=== PATIENT | female | born 1930 | race Caucasian/White ===

== ENCOUNTER 2017-04-20 21:41 | Inpatient (IN) | payer MEDICARE, OTHER ==
[~2017-04-20] VITALS: Ht 157.5 cm; Wt 45.4 kg
[~2017-04-20 21:41] MED LIST: AMLO5TAB4 PO; FLEC50TA2 PO; LEVO75TA PO; METO-302 PO; [UNRECOGNIZED DRUG - CODE] PO
--- NOTE | 2017-04-20 21:44 | NUR ---
PT BIB [facility] WITH A C/O LAC ON BACK OF HEAD AND SKIN TEAR ON THE RT HAND S/P FALL. ETOH NOTED. PT IS ON THE MONITOR AND CONTINUOUS PULSE OX. PT IS VERBALLY ABUSIVE TO THE STAFF AND YELLING "FUCK YOU" TO EVERYONE. WHEN TRYING TO HELP THE PT SHE YELLS: " SHUT UP"
[2017-04-20] MEDS ORDERED: OLANZAPINE 10 MG VIAL IM ONE ×2 (21:45→22:00)
--- NOTE | 2017-04-20 21:50 | NUR ---
PT SUMANTH'Brittany DOW.
--- NOTE | 2017-04-20 22:13 | NUR ---
PT COMBATIVE, ER WILL CALL WHEN READY FOR CT SCANS.
--- NOTE | 2017-04-20 22:20 | NUR ---
PT IS IN CT.
--- NOTE | 2017-04-20 22:50 | NUR ---
PT RETURNED FROM CT.
--- NOTE | 2017-04-20 22:52 | NUR ---
PT REC'D VIRGIL TO LAC ON BACK OF HEAD.
--- NOTE | 2017-04-20 22:53 | NUR ---
PT CALLED THE NURSE. I WENT INTO THE ROOM. PT ASKED: "WHY DOES MY HEAD HURT?" I TOLD THE PT THAT SHE FELL AND CUT HER HEAD. PT YELLED: "I KNOW, I KNOW I FELL, BUT WHY DOES MY HEAD HURT?" PT WAS TOLD THAT SHE CUT HER HEAD WHEN SHE FELL. PT YELLED: "SHUT UP YOU FAT PIG". "GET OUT"
--- NOTE | 2017-04-20 23:06 | NUR ---
PT CALLED. PT WANTS TO KNOW HER BP. PT WAS TOLD. PT YELLED:"GET THE HELL OUT OF HERE".
[2017-04-20 23:41] LABS: BASOPHILS % (AUTO) 0.7 % (0.0-2.0); EOSINOPHILS # (AUTO) 0.1 /CMM (0.0-0.7); EOSINOPHILS % (AUTO) 2.6 % (0.0-6.0); HEMATOCRIT 37 % (33-45); HEMOGLOBIN 12.3 g/dL (11.5-14.8); LYMPHOCYTES # (AUTO) 1.9 /CMM (0.8-4.8); LYMPHOCYTES % (AUTO) 37.6 % (20.0-44.0); MEAN CORPUSCULAR HEMOGLOBIN 30 PG (26.0-33.0); MEAN CORPUSCULAR HGB CONC 33 g/dl (31.0-36.0); MEAN CORPUSCULAR VOLUME 91 fL (82-100); MONOCYTES # (AUTO) 0.4 /CMM (0.1-1.30); NEUTROPHILS # (AUTO) 2.5 /CMM (1.8-8.9); NEUTROPHILS % (AUTO) 50.1 % (43.0-81.0); PLATELET COUNT (AUTO) 254 /CMM (150-450); RDW COEFFICIENT OF VARIATION 14.2 (11.5-15.0); RED BLOOD CELL COUNT(AUTO) 4.06 MIL/uL (4.0-5.2); WHITE BLOOD COUNT (AUTO) 4.9 K/uL (4.3-11.0)
[2017-04-20 23:54] LABS: CALCIUM, SERUM 9.3 mg/dL (8.5-10.1); CARBON DIOXIDE 22 mmol/L (21-32); CHLORIDE 105 mmol/L (98-107); CREATININE 1.6 mg/dL (0.6-1.3); GLUCOSE 94 mg/dL (74-106); POTASSIUM 4.4 mmol/L (3.5-5.1); SODIUM SERUM 138 mmol/L (136-145); UREA NITROGEN, BLOOD 25 mg/dL (7-18)
[2017-04-20 23:58] LABS: ALANINE AMINOTRANSFERASE 12 U/L (12-78); ALBUMIN 3.7 g/dL (3.4-5.0); ALCOHOL, BLOOD 118 mg/dL (0-0); ALKALINE PHOSPHATASE 81 U/L (46-116); ASPARTATE AMINOTRANSFERASE 17 U/L (15-37); BILIRUBIN,DIRECT 0.1 mg/dL (0.0-0.2); BILIRUBIN,TOTAL 0.2 mg/dL (0.2-1.0); TOTAL PROTEIN, SERUM 7.4 g/dL (6.4-8.2)
[2017-04-21] LABS: ACETAMINOPHEN 0 ug/ml (10-30); SALICYLATE 0.9 mg/dL (2.8-20.0)
[2017-04-21] MEDS ORDERED: LORAZEPAM INJ 2 MG/ML VIAL IM ONE
[2017-04-21] MEDS ORDERED: LORAZEPAM INJ 2 MG/ML VIAL ONE (00:09)
--- NOTE | 2017-04-21 00:12 | NUR ---
PT IS SCREAMING AT STAFF. STAFF GOES INTO THE ROOM AND THE PT YELLS: "GET THE FUCK OUT".
--- NOTE | 2017-04-21 01:25 | NUR ---
PT STATED THAT SHE HAD TO USE THE BATHROOM. PT WAS PLACED ON A BEDPAN. APPROX 350 ML YELLOW URINE OUTPUT NOTED. PT HAD ALSO WET THE BED. PT WAS CLEANED UP AND NEW LINENS APPLIED. PT IS ON THE MONITOR AND CONTINUOUS PULSE OX.
[2017-04-21] MEDS ORDERED: hydrALAZINE HCL IV 20 MG VIAL IV ONE (01:30)
[2017-04-21] MEDS ORDERED: hydrALAZINE HCL IV 20 MG VIAL ONE (01:36)
--- NOTE | 2017-04-21 02:00 | NUR ---
PT STATED THAT SHE HAD TO GO TO THE BATHROOM. PT WAS PLACED ON BEDPAN. PT STATED THAT SHE WET THE BED. PT WAS CLEANED AND BED LINENS WERE CHANGED. PT IS ON THE MONITOR AND CONTINUOUS PULSE OX.
--- NOTE | 2017-04-21 02:08 | NUR ---
CXR IN PROGRESS AT THE BEDSIDE.
[2017-04-21] MEDS ORDERED: hydrALAZINE HCL 10 MG TABLET PO PRN (02:30)
[2017-04-21] MEDS ORDERED: ACETAMINOPHEN 325 MG TABLET PO PRN (02:30)
[2017-04-21] MEDS ORDERED: ONDANSETRON HCL/PF 4 MG/2 ML VIAL IVP PRN (02:30)
[2017-04-21] MEDS ORDERED: Z GUARD REMEDY 2 OZ OINT TP PRN (02:30)
[2017-04-21] MEDS ORDERED: LORAZEPAM INJ 2 MG/ML VIAL IV PRN (02:30)
[2017-04-21] MEDS ORDERED: ZOLPIDEM TARTRATE 5 MG TABLET PO PRN (02:30)
--- NOTE | 2017-04-21 03:35 | NUR ---
PT IS AWAKE AND MUMBLING. PT IS ON THE MONITOR AND CONTINUOUS PULSE OX. WILL CONTINUE TO MONITOR THE PT.
--- NOTE | 2017-04-21 05:25 | NUR ---
PT WOKE UP AND WANTED TO USE THE BATHROOM. PT WAS GIVEN A BED PURVIS AND HAD APPROX 300 ML PALE URINE OUTPUT. PT WAS CLEANED AND COVERED WITH WARM BLANKETS.
--- NOTE | 2017-04-21 05:53 | NUR ---
NOZZLE OPERATOR IS AT THE BEDSIDE FOR BLOOD DRAW. PT IS REFUSING BLOOD DRAW.
[2017-04-21] MEDS: IV 1/2NS 1000 ML 1,000 ML IV PRN ×2 (06:30→11:29)
--- NOTE | 2017-04-21 06:30 | NUR ---
STARTED PT'S MAINTAINANCE DRIP OF 0.45 NS VIA 22G IV RT HAND.
--- NOTE | 2017-04-21 07:06 | NUR ---
REPORT GIVEN TO SANDRA MENDZE FOR BRANT.
--- NOTE | 2017-04-21 07:12 | NUR ---
PATIENT ON BED.,AWAKE, VSS
[2017-04-21] MEDS ORDERED: METOPROLOL SUCCINATE 25 MG TAB.SR.24H PO SCH (09:00)
--- NOTE | 2017-04-21 09:35 | NUR ---
PT TRANSFERRED TO TRANSITION AREA, VSS
--- NOTE | 2017-04-21 10:00 | NUR ---
PT AGITATED, RUDE, UNCOOPERATIVE. HIGH BP, REFUSING ALL MEDS.
--- NOTE | 2017-04-21 10:08 | NUR ---
WOUND CARE CONSULT: ATTEMPTED TO SEE PT IN TRANSITION AREA BUT PT AGITATED AND REFUSED SKIN ASSESSMENT. PT NOTED TO HAVE VIRGIL TO POSTERIOR SCALP. WILL SEE PRN.
[2017-04-21] MEDS: FLECAINIDE ACETATE (100 MG) 100 MG TABLET PO SCH ×2 (11:20→17:07)
[2017-04-21 11:40] VITALS: BP 189/92
[2017-04-21] MEDS: PANTOPRAZOLE 40 MG TABLET.DR PO SCH (12:17)
[2017-04-21] MEDS: FOLIC ACID 1 MG TABLET PO SCH (12:18)
[2017-04-21] MEDS: MULTIVITAMINS,THERAGRAN 1 UDTAB TABLET PO SCH (12:18)
[2017-04-21] MEDS: AMLODIPINE BESYLATE 5 MG TABLET PO SCH ×3 (12:19→17:12)
[2017-04-21] MEDS: LEVOTHYROXINE SODIUM 75 MCG TABLET PO SCH (12:19)
[2017-04-21] MEDS: THIAMINE HCL 100 MG TABLET PO SCH (12:19)
--- NOTE | 2017-04-21 17:00 | NUR ---
TAMBOCOR ADMINISTERED. REFUSING DINNER, ASSISTED WITH HYGIENE ONE SOFT BM.
[2017-04-21] MEDS: hydrALAZINE HCL 25 MG TABLET PO PRN ×2 (17:10→22:57)
--- NOTE | 2017-04-21 22:56 | NUR ---
BP ELEVATED - 177/77. PT MEDICATED WITH PRN APRESOLINE
[2017-04-21 22:58] VITALS: BP 177/77
--- NOTE | 2017-04-21 23:57 | NUR ---
BP BETTER FOLLOWING BP MEDICATION. 111/56 - HR-60. PT RESTING COMFORTABLY WITHOUT COMPLAINTS.
[2017-04-21 23:58] VITALS: BP 111/56
[2017-04-22 01:56] VITALS: BP 120/68
--- NOTE | 2017-04-22 03:38 | NUR ---
PT ASLEEP. NO DISTRESS NOTED
[2017-04-22 06:11] VITALS: BP 131/59
[2017-04-22] MEDS: PANTOPRAZOLE 40 MG TABLET.DR PO SCH (07:30)
[2017-04-22] MEDS: LEVOTHYROXINE SODIUM 75 MCG TABLET PO SCH (07:30)
[2017-04-22] MEDS ORDERED: PANTOPRAZOLE 40 MG TABLET.DR PO ONE (08:22)
[2017-04-22] MEDS ORDERED: THIAMINE HCL 100 MG TABLET ONE (08:41)
[2017-04-22] MEDS: FOLIC ACID 1 MG TABLET PO SCH (09:20)
[2017-04-22] MEDS: AMLODIPINE BESYLATE 5 MG TABLET PO SCH ×2 (09:20→17:00)
[2017-04-22] MEDS: MULTIVITAMINS,THERAGRAN 1 UDTAB TABLET PO SCH (09:21)
[2017-04-22] MEDS: THIAMINE HCL 100 MG TABLET PO SCH (09:21)
[2017-04-22] MEDS: FLECAINIDE ACETATE (100 MG) 100 MG TABLET PO SCH ×2 (09:21→17:23)
--- NOTE | 2017-04-22 10:06 | NUR ---
PATIENT ON BED. VSS
--- NOTE | 2017-04-22 11:00 | NUR ---
PATIENT AOX2-3. AWAKE AND ABLE TO MAKE NEEDS KNOW, WITH EPISODE OF BEING VERBALLY AGGRESSIVE TO STAFF, EXPLAINED RISK AND BENEFIT OF ACTIONS WITH HELP. HOB UP. DENIED PAIN AND NO SOB NOTED. KEPT CLEAN, DRY AND COMFORTABLE AT ALL TIMES. ALL NEEDS ATTENDED AND RENDERED.
[2017-04-22 16:00] VITALS: BP 111/48
--- NOTE | 2017-04-22 16:37 | NUR ---
CALLED AND GAVE REPORT TO KARI FLORES FOR BRANT.
--- NOTE | 2017-04-22 16:50 | NUR ---
RECEIVED PATIENT IN STABLE CONDITION FROM ER. IN NO APPARENT DISTRESS. VITAL SIGNS ARE OK. NO LONGER ANY SIGNS OF HYPERTENSIVE CRISIS. CALL LIGHT IS WITHIN REACH. BEDSIDE RAILS ARE UP X2. BED IS LOCKED AND LOWERED. WILL CONTINUE TO MONITOR.
[2017-04-22] MEDS: IV 1/2NS 1000 ML 1,000 ML IV PRN (18:54)
--- NOTE | 2017-04-22 18:56 | NUR ---
PATIENT IS VERBALLY ABUSIVE TO STAFF
--- NOTE | 2017-04-22 18:59 | NUR ---
MS RN CLOSING NOTES PATIENT IS NO APPARENT DISTRESS. PATIENT IS ALERT AND RESTING IN BED. CALL LIGHT IS WITHIN REACH. BEDSIDE RAILS ARE UP X2. BED IS LOCKED AND LOWERED. ALL NEEDS WERE MET. WILL ENDORSE CARE TO PRESIDENT/GM PRODUCTION & LIVE EXPERIENCES NURSE FOR BRANT.
--- NOTE | 2017-04-22 19:55 | NUR ---
TELE/PRODUCTION SUPPORT DEVELOPER; RECEIVED PT FORM THE DAY SHIFT RN FOR CONTINUITY OF CARE. PT AT THIS TIME. PT IN BED AWAKE, ALERT AND VERBALLY RESPONSIVE BUT SCREAMING WHILE THE PROJECT SYSTEMS ENGINEER DOING THE VITAL SIGNS CHECKED. IVF ON PROGRESS ON RH WITH 1/2 NS AT 60 ML /HOUR. ON TELEMETRY. NO S/S OF RESPIRATORY DISTRESS. BED ON LOWER POSITION AND LOCKED FOR SAFETY. ALL SIDE RAILS ARE UP FOR SAFETY. CONTINUE TO MONITOR. CALL LIGHT WITHIN REACH.
[2017-04-22 20:00] VITALS: BP 91/51
--- NOTE | 2017-04-22 21:00 | NUR ---
TELE/INJECTION MAINTENANCE TECHNICIAN; PT WAS TRANSFERRED VIA BED TO ROOM 326-1 PER CHARGE NURSE.
--- NOTE | 2017-04-22 23:00 | NUR ---
TELE/BULK FLUIDS HANDLER; PT ON SR WITH BBB RATE OF 66 PER MT. PT SLEEPING AT THIS TIME.
[2017-04-23] VITALS: BP 96/58
--- NOTE | 2017-04-23 01:30 | NUR ---
TELE/MOLD BUNCH TRIMMER; PT WOKE UP ASKING FOR A BEDPAN WAS GIVEN BY THE SALES MANAGEMENT INTERN. I REMOVED THE BEDPAN AND SHE VOIDED TO A CLEAR YELLOW URINE 150 ML. PERINEAL CARE DONE AND DIAPER CHANGED. REPOSITIONED. PT IS VERBALLY ABUSIVE AND SO DEMANDING. HOB AND LEGS ARE ELEVATED PER PT. ALSO PT WANTS THE LIGHTS OFF AND DOOR CLOSED. SIDE RAILS ARE UP FOR SAFETY. CALL LIGHT WITHIN REACH. WILL CONTINUE TO MONITOR.
[2017-04-23 04:00] VITALS: BP 107/64
--- NOTE | 2017-04-23 06:36 | NUR ---
TELE/BEAM WORKER; PT ON SR WITH BBB 61. IVF ON PROGRESS. PT ABLE TO SLEPT BUT ONCE ANOTHER NURSE GOES TO THE PT ON 326-2 PT WOKE UP AND GOT MAD AND SCREAMED . PT DOES NOT WANT TO BE BOTHER. SHE ALWAYS WANT THE DOOR CLOSED. IVF ON PROGRESS. PT REFUSED BLOOD DRAW. I TOLD THE LAB. TECH TO COME BACK LATER ON. WILL CONTINUE TO MONITOR. CALL LIGHT WITHIN REACH. WILL ENDORSE TO THE DAY SHIFT NURSE.
[2017-04-23] MEDS: PANTOPRAZOLE 40 MG TABLET.DR PO SCH (07:30)
[2017-04-23] MEDS: LEVOTHYROXINE SODIUM 75 MCG TABLET PO SCH (07:30)
--- NOTE | 2017-04-23 07:34 | NUR ---
TIRE BALANCER OPENING NOTES RECEIVED PATIENT IN STABLE CONDITION. IN NO APPARENT DISTRESS. PATIENT IS ALERT. BEDSIDE RAILS ARE UP X2. BED IS LOCKED AND LOWERED. CALL LIGHT IS WITHIN REACH. WILL CONTINUE TO MONITOR.
[2017-04-23 08:00] VITALS: BP 100/64
[2017-04-23] MEDS: THIAMINE HCL 100 MG TABLET PO SCH (09:00)
[2017-04-23] MEDS: AMLODIPINE BESYLATE 5 MG TABLET PO SCH (09:00)
[2017-04-23] MEDS: FOLIC ACID 1 MG TABLET PO SCH (09:00)
[2017-04-23] MEDS: MULTIVITAMINS,THERAGRAN 1 UDTAB TABLET PO SCH (09:00)
[2017-04-23] MEDS: FLECAINIDE ACETATE (100 MG) 100 MG TABLET PO SCH (09:00)
--- NOTE | 2017-04-23 09:42 | NUR ---
PATIENT IS VERBALLY ABUSIVE TO STAFF. PATIENT REFUSED HER MEDICATIONS AFTER CAREFUL EXPLANATION OF THE IMPORTANCE OF MEDICATION ADHERENCE.
[2017-04-23] MEDS: IV 1/2NS 1000 ML 1,000 ML IV PRN (11:25)
--- NOTE | 2017-04-23 11:47 | NUR ---
Two Way Radio Installer saw the patient due to alcohol intoxication. The patient initially presented to the emergency room due to a fall that she experienced while she was intoxicated. The patient is an 87 year old female. She is alert and oriented x3. spinning room worker met with the patient bedside. She is agitated and easily gets frustrated by questioning. Patient reported that she slipped in the bathroom and cut her head open. She does have a caregiver Kelley (home: [phone], cell: [phone]) that helps her out in the home. SW attempted to call her caregiver to obtain more information but she did not answer and SW left her a message. Patient states that she is able to take care of herself, is able to feed herself, take a bath, and cook. She reports that she receives SSI (amnt unknown). She notes that she does have a walker that she uses. spinning room worker spoke to the patient about her ETOH use and patient denied frequently drinking. She reported that she drinks 1-2 glasses of wine around 2-3x/week with her dinner. She denied overuse of ETOH despite her history and previous hospital admissions. She denied use of substances. SW talked with the patient about substance use referrals. Patient became agitated and stated she does not have a problem and does not need any referrals. SW also asked the patient if she was interested in placement however she adamantly refused this and reported that she wants to go home once she is discharged from the hospital. Patient resides alone and has the assistance of her caregiver. spinning room worker notified patient that she will be available if she changes her mind in terms of referrals and patient appreciated this. Per her nurse Nehemias, patient has a pending PT evaluation. spinning room worker provided her with a shirt and shoes for her to utilize, as her nurse Nehemias reported that patient only came in with pants and one slipper. spinning room worker will file APS report for the patient for self-neglect. Her nurse Nehemias was notified.
--- NOTE | 2017-04-23 12:21 | NUR ---
stockroom worker filed APS report (self-neglect) with intake ID number of [id number]. Patient has a hx of falls due to intoxication use. She lives alone. Nurse Nehemias is informed.
--- NOTE | 2017-04-23 12:33 | NUR ---
PATIENT REFUSED LAB DRAW.
--- NOTE | 2017-04-23 15:40 | NUR ---
composition worker met with the patient's caregiver Kelley who stated that she is with the patient everyday from 10AM-5/6pm daily. She states that someone from [facility] called her but she is suspicious and did not want to give any information out. MARLIN obtained number of bilingual social worker and called. MARLIN spoke to Ritika ([phone]) and he informed SW that he is following the case and has worked with this family before. MARLIN notified him that patient is at [facility]. He stated he will follow up with the family. Patient and caregiver were informed.
--- NOTE | 2017-04-23 16:00 | NUR ---
PATIENT DISCHARGED HOME. SHE STATED SHE WANTED TO GO HOME. PATIENT REFUSED TO AMBULATE WITH PHYSICAL THERAPY X3. PATIENT WAS ENCOURAGED TO AMBULATE WITH PHYSICAL THERAPY X3 AND REFUSED. PATIENT STATED "LEAVE ME ALONE!". PATIENT EDUCATED ON EXIT CARE INSTRUCTIONS AND EDUCATION. MEDICATIONS REVIEWED AND PROVIDED. PATIENT REFUSED TO SIGN EXITCARE EDUCATION DISCHARGE PAPERWORK. WITNESSED BY CAREGIVER AND CHARGE NURSE SERGIO. DUAL SIGNATURE OF DISCHARGE PAPERWORK BY MYSELF AND CHARGE NURSE SERGIO. PATIENT REFUSED TO HAVE DISCHARGE PICTURES TAKEN. BELONGINGS WERE VERIFIED BUT PATIENT REFUSED TO SIGN BELONGINGS LIST. PATIENT WAS ESCORTED OUTSIDE ON WHEELCHAIR AND HELPED TO HER CAR. PATIENT WILL HAVE HELP AT HOME. PATIENT DISCHARGED IN THE CARE OF HER CAREGIVER. CAREGIVER IS THE MANAGER RISK. Addendum: 04/23/17 at 1638 by KARI NAVARRO RN PATIENTS VITAL SIGNS ARE STABLE. DR. KILGORE NOTIFIED OF PATIENT BEING NON COMPLIANT.
== END 2017-04-23 16:00 | disposition home or self-care (01) | DRG 896 ==
LOC: ER 21:42 → TRANSITION 04-21 08:51 → MED 04-22 17:00 → TELE 04-22 21:17 → MED 04-23 08:32
PROVIDERS: ADMIT Internal Medicine; ATTEND Internal Medicine
DX: F10.129 Alcohol abuse with intoxication, unspecified (principal); N17.0 Acute kidney failure with tubular necrosis; G93.41 Metabolic encephalopathy; Z88.5 Allergy status to narcotic agent; Z96.649 Presence of unspecified artificial hip joint; W19.XXXA Unspecified fall, initial encounter; Y90.5 Blood alcohol level of 100-119 mg/100 ml; W18.30XA Fall on same level, unspecified, initial encounter; E86.0 Dehydration; S09.90XA Unspecified injury of head, initial encounter; Z90.12 Acquired absence of left breast and nipple; Z85.3 Personal history of malignant neoplasm of breast; Z79.899 Other long term (current) drug therapy; J44.9 Chronic obstructive pulmonary disease, unspecified; I16.0 Hypertensive urgency; F07.81 Postconcussional syndrome; S01.01XA Laceration without foreign body of scalp, initial encounter; E03.9 Hypothyroidism, unspecified; Y92.009 Unspecified place in unspecified non-institutional (private) residence as the place of occurrence of the external cause; Z88.8 Allergy status to other drugs, medicaments and biological substances; Z88.0 Allergy status to penicillin; Z91.013 Allergy to seafood; E86.9 Volume depletion, unspecified; F17.200 Nicotine dependence, unspecified, uncomplicated; I11.9 Hypertensive heart disease without heart failure
CPT/HCPCS: 36415; 70450-TC; 71010-TC; 72125-TC; 80048-TC; 80076-TC; 85025-TC; 87081-TC; 93307-TC; A4606; A6402; G0480; J0360; J2060; J3490; Z7610